=== PATIENT | male | born 1950 | race Caucasian/White ===

== ENCOUNTER 2017-11-19 09:23 | Outpatient (CLI) | payer MEDICARE | END 2017-11-19 09:24 | disposition home or self-care (01) | LOC: LABBT 09:23 | PROVIDERS: ATTEND Orthopaedic Surgery | DX: Z01.818 Encounter for other preprocedural examination (principal); M17.12 Unilateral primary osteoarthritis, left knee ==

== ENCOUNTER 2017-11-27 08:50 | Outpatient (CLI) | payer MEDICARE ==
[2017-11-27 09:50] LABS: #Eosinphils 0.2 thou/uL (0.0-0.7); #Lymphocytes 1.4 thou/uL (1.20-3.40); #Monocytes 0.4 thou/uL (0.11-0.59); #Neutrophils 2.7 thou/uL (1.40-6.50); %Basophils 0.8 % (0.0-1.0); %Eosinophils 4.1 % (0.0-10.0); %Lymphocytes 29.4 % (21.0-51.0); %Monocytes 8.6 % (0.0-10.0); %Neutrophils 57.1 % (42.0-75.0); Hemoglobin 16.1 g/dL (14.0-18.0); Mean Corpuscular HGB CONC 33.9 g/dL (32.0-36.0); Mean Corpuscular Hemoglobin 32.6 pg (27.0-31.0); Mean Corpuscular Volume 96.2 fl (80.0-94.0); Mean Platelet Volume 7.3 fL (7.4-10.4); Platelet Count 157 thou/uL (130-400); RBC Distribution Width 12.9 % (11.5-14.5); Red Blood Cell (RBC) Count 4.92 mill/uL (4.70-6.10); White Blood Cell (WBC) Count 4.7 thou/uL (4.8-10.8)
[2017-11-27 09:54] LABS: Bilirubin Negative (Negative); Blood, Urine Negative (Negative); Clarity CLEAR (Clear); Glucose, Urine (Dipstick) Negative (Negative); Leukocyte Negative (Negative); Nitrite Negative (Negative); Protein, Urine (Dipstick) Negative (Neg-Trace); Specific Gravity, Urine 1.012 (1.002-1.036); Urobilinogen 0.2 mg/dL (0.2-1.0)
[2017-11-27 09:56] LABS: Bacteria/HPF None Seen HPF (None Seen); Hyaline Casts/LPF 0-3 HYALINE CAST LPF (0-3 Hyaline); Squamous Epithelial 0-3 HPF (0-3); WBC/HPF 0-3 HPF (0-3)
[2017-11-27 09:58] LABS: INR-International Normal Ratio 1.3; PTT 41.4 SEC (22.9-36.1); Prothrombin Time 16.7 SEC (12.0-14.7)
[2017-11-27 10:11] LABS: Anion Gap 14 mmol/L (10-20); BUN (Urea Nitrogen) 20 mg/dL (8.4-25.7); Calc. Creatinine Clearance 0 mL/min (70-130); Calcium 9.5 mg/dL (7.8-10.44); Carbon Dioxide 24 mmol/L (23-31); Chloride 105 mmol/L (98-107); Estimated GFR-MDRD Greater than 90; Glucose 130 mg/dL (80-115); Potassium 4.4 mmol/L (3.5-5.1); Sodium 139 mmol/L (136-145)
--- NOTE | 2018-01-22 17:45 | EKG ---
Test Reason : Blood Pressure : / mmHG Vent. Rate : 073 BPM Atrial Rate : 073 BPM P-R Int : 178 ms QRS Dur : 080 ms QT Int : 372 ms P-R-T Axes : 068 028 046 degrees QTc Int : 409 ms Normal sinus rhythm Normal ECG No previous ECGs available Confirmed by KYLEE DIGGS M.D. ([id number] on 01/22/2018 5:45:31 PM Referred By: IERO Confirmed By:KYLEE DIGGS M.D.
== END 2017-11-27 08:51 | disposition home or self-care (01) ==
LOC: LABBT 08:50
PROVIDERS: ATTEND Orthopaedic Surgery
DX: Z01.818 Encounter for other preprocedural examination (principal); M17.12 Unilateral primary osteoarthritis, left knee
CPT/HCPCS: 80048; 81001; 85025; 85610; 85730; 86850; 86900; 86901; 87081; 93005; 93010

== ENCOUNTER 2017-12-02 05:25 | Day surgery (SDC) | payer MEDICARE ==
[2017-12-02] MEDS ORDERED: Fentanyl 100 MCG/2 ML VIAL ONE ×2 (06:14→06:28)
[2017-12-02] MEDS ORDERED: CEFAZOLIN/Water 2 GM/20 ML SYRINGE ONE (06:20)
[2017-12-02] MEDS ORDERED: Sodium Chloride 0.9% 100 ML ONE (06:20)
[2017-12-02] MEDS ORDERED: Midazolam HCl 2 mg/2 ml Vial ONE (06:28)
[2017-12-02] MEDS ORDERED: Lidocaine 1% (PF) 30 ML VIAL ONE ×2 (06:28→07:24)
[2017-12-02] MEDS ORDERED: Vancomycin HCl 1.5 GM in Sodium Chloride 0.9% 250 ML 300 ML IVPB SCH ×2 (06:30→18:00)
[2017-12-02] MEDS ORDERED: Bupivacaine PF 0.5% 30 ML VIAL ONE (06:44)
[2017-12-02] MEDS ORDERED: Zolpidem Tartrate 5 MG TAB PO PRN ×2 (07:16→07:21)
[2017-12-02] MEDS ORDERED: traMADol HCl 50 MG TAB PO PRN ×3 (07:16→07:21)
[2017-12-02] MEDS ORDERED: Ondansetron HCl/PF 4 MG/2 ML Vial IVP PRN ×2 (07:16→07:21)
[2017-12-02] MEDS ORDERED: HYDROcodone/Acetaminophen 10/325 mg Tablet PO PRN ×4 (07:16→07:21)
[2017-12-02] MEDS ORDERED: Bupivacaine 0.5% 50 ML in Sodium Chloride 0.9% 50 ML NERVE BLCK SCH (07:16)
[2017-12-02] MEDS ORDERED: Promethazine HCl 25 MG/ML VIAL IM PRN ×2 (07:16→07:21)
[2017-12-02] MEDS ORDERED: Fentanyl 100 MCG/2 ML VIAL IV PRN (07:17)
[2017-12-02] MEDS ORDERED: Acetaminophen 325 MG TAB PO PRN (07:21)
[2017-12-02] MEDS ORDERED: diphenhydrAMINE 25 MG CAP PO PRN (07:21)
[2017-12-02] MEDS ORDERED: Fentanyl 100 MCG/2 ML VIAL SLOW IVP PRN (07:21)
[2017-12-02] MEDS ORDERED: methylPREDNISolone Acetate 40 mg/ml Vial ONE (07:24)
[2017-12-02] MEDS ORDERED: Tranexamic Acid 1,000 MG in Sodium Chloride 0.9% 100 ML IVPB SCH (07:30)
[2017-12-02 11:34] VITALS: BMI 38.6
--- NOTE | 2017-12-02 11:39 | OP ---
DATE OF PROCEDURE: 12/02/2017. PREOPERATIVE DIAGNOSIS: Bilateral knee osteoarthrosis with a left being worse than the right. POSTOPERATIVE DIAGNOSIS: Bilateral knee osteoarthrosis with a left being worse than the right. PROCEDURES PERFORMED: 1. Left total knee replacement using Noel pinless navigation. 2. Right knee corticosteroid injection. SURGEON: Nicolas Layne M.D. AGRICULTURAL EQUIPMENT MECHANIC: Benny Cash PA-C. BLOOD LOSS: Minimal. ANESTHETIC: The patient did have general anesthetic. Patient also had preoperative blocks. IMPLANTS: To the left knee is a [place] Triathlon total knee system, the femur was a size 6 cruciate retaining. We used a size 6 universal tibia, we used a 6 x 9 mm X3 CS poly for the tibia and we use d an asymmetric 35 x 10 X3 patella. DISPOSITION: He did go to the recovery room in stable condition. INDICATIONS: A 67-year-old male who presents with bilateral knee arthritis and at this time, he wish ed to have the left knee replaced and the right knee injected. After all appropriate consent forms w ere explained and signed, he was taken to the operating room and at this time was given general anest hetic. Once the level of anesthesia was appropriate, the right knee was cleaned off with alcohol and a mixture of 1% plain lidocaine and 80 mg of Depo-Medrol was injected into the right knee without an y complication. A Band-Aid was applied. PROCEDURE IN DETAIL: After all appropriate consent forms were explained and signed, the patient was taken back to the Operating Room and at this time was given general anesthetic. Once the level of an esthesia was appropriate, a well-padded tourniquet was placed on the left leg and the leg was then pr epped and draped in standard surgical fashion. The limb was exsanguinated and tourniquet taken up to 300 mmHg. Midline incision was made with a 10 blade down through the skin and subcutaneous tissue. Bovie electrocautery was used to coagulate any brisk venous bleeding. A new blade was used to make a medial parapatellar arthrotomy. Small subperiosteal release was performed medially and excess fat pad was removed. The knee was flexed up to gain access to the femur. The femur was navigated and di stal femoral resection was made. Epicondylar access was used to align our sizing jig and this was pi nned in place. We sized our femur to be a size 6 cruciate retaining 4:1 cutting block was applied an d pinned. Anterior and posterior chamfer cuts were then made. We navigated out our proximal tibia a nd made our proximal tibial resection. Spreaders were used to remove any posterior osteophytes off t he back of the femur as well as remaining meniscal tissue. A long alignment alexandra was then used to ach ieve correct rotation of our tibial baseplate and a size 6 was chosen. This was pinned in place. We t rialed the polyethylene and a 6 x 9 mm X3 CS polyethylene gave us full extension and good stability t hroughout range of motion. Two towel clips and a saw were used to cut our patella. Three lug nuts w ere drilled and 35 x 10 X3 patella was trialed which sat nicely in the trochlear groove. We then dri lled our femur and punched our tibia. All components were removed. The knee was thoroughly irrigate d and dried. Cement was mixed into the cement gun on the back table. Components were then placed. The knee was held out in full extension until the cement had dried. All excess bone cement was remov ed. Multiple #2 Vicryl stitches as well as a Quill was used to close our extensor mechanism. 0 Quil l followed by a running Monoderm was then used to close the skin. Surgicel glue was then used on the skin. Once this had dried, soft tissue dressing was applied to the limb, tourniquet was let down, a nd the toes pinked up nicely. The patient was then awakened and taken to the Recovery Room in stable condition. All counts were correct at the end of the case. The patient did receive preoperative IV antibiotics. The patient was injected with Exparel for postoperative pain relief.
[2017-12-02] MEDS: Sodium Chloride 0.9% 1,000 ML IV SCH ×4 (11:53→20:50)
[2017-12-02] MEDS: Allopurinol 300 MG TAB PO SCH (11:54)
[2017-12-02] MEDS: Propranolol HCl LA 80 MG CAP PO SCH (11:54)
[2017-12-02] MEDS: Multivitamin W/ Minerals 1 TAB PO SCH (12:02)
[2017-12-02] MEDS: Ferrous Gluconate 324 MG TAB PO SCH ×2 (12:02→20:46)
[2017-12-02] MEDS: Senokot S 8.6-50 MG TAB PO SCH ×2 (12:03→20:45)
[2017-12-02] MEDS: Metamucil PACK PO SCH (12:08)
[2017-12-02] MEDS: Aspirin 81 mg Enteric Coated Tablet PO SCH ×2 (12:11→20:46)
[2017-12-02] MEDS: Hydrochlorothiazide 25 MG TAB PO SCH (12:11)
[2017-12-02] MEDS: Loratadine 10 MG TAB PO SCH (12:12)
[2017-12-02] MEDS ORDERED: PHENYLEPHRINE-NS 100 MCG/ML 10 ML SYRINGE ONE (12:22)
[2017-12-02] MEDS ORDERED: Ondansetron HCl/PF 4 MG/2 ML Vial ONE (12:22)
[2017-12-02] MEDS ORDERED: Ketorolac Tromethamine 30 MG/ML VIAL ONE (12:22)
[2017-12-02] MEDS ORDERED: PROPOFOL 200 MG/20 ML VIAL ONE (12:22)
[2017-12-02] MEDS ORDERED: Dexamethasone 20 MG/5 ML VIAL ONE (12:22)
[2017-12-02] MEDS ORDERED: Ropivacaine 0.5% HCl/PF (150 MG/30 ML VIAL) ONE (12:31)
[2017-12-02] MEDS ORDERED: Ropivacaine 0.2% HCl/PF (40 MG/20 ML VIAL) ONE (12:31)
--- NOTE | 2017-12-02 14:55 | PDOC.PN ---
- Subjective Encounter Start Date: 12/02/17 Encounter Start Time: 09:30 Subjective: pt up in bed no complains - Objective Vital Signs & Weight: Vital Signs (12 hours) Temp Pulse Resp BP Pulse Ox 12/02/17 11:42 97.6 F 68 20 97 12/02/17 10:40 97.6 F 68 20 163/84 H 97 Weight Weight 254 lb Phys Exam - Physical Examination HEENT: PERRLA, moist MMs, sclera anicteric, TM's clear, oral pharynx no lesions , 2+ tonsils Neck: no nodes, no JVD, supple, full ROM Respiratory: no wheezing, no rales, no rhonchi, wheezing present, clear to auscultation bilateral Cardiovascular: RRR, no significant murmur, no rub, gallop, irregular Gastrointestinal: soft, non-tender, no distention, positive bowel sounds left knee in michael wrap Dx/Plan (1) DVT (deep venous thrombosis) Code(s): I82.409 - ACUTE EMBOLISM AND THOMBOS UNSP DEEP VN UNSP LOWER EXTREMITY Status: Acute (2) HTN (hypertension) Code(s): I10 - ESSENTIAL (PRIMARY) HYPERTENSION Status: Acute (3) HTN (hypertension) Code(s): I10 - ESSENTIAL (PRIMARY) HYPERTENSION Status: Acute - Plan * . plan: pt has a high risk of dvt. Pt has strong family hx of factor V Leiden. pt has had two bouts of dvt. spoke with surgeon and we decided that will start pt on xarelto 10mg which is dvt ppx and the following day 12/04 will put pt on full dose of xarelto. will also continue asa given his hx of tia in the past. Review of Systems - Review of Systems ENT: negative: Ear Pain, Ear Discharge, Nose Pain, Nose Discharge, Nose Congestion, Mouth Pain, Mouth Swelling, Throat Pain, Throat Swelling, Other Respiratory: negative: Cough, Dry, Shortness of Breath, Hemoptysis, SOB with Excertion, Pleuritic Pain, Sputum, Wheezing Cardiovascular: negative: chest pain, palpitations, orthopnea, paroxysmal nocturnal dyspnea, edema, light headedness, other Gastrointestinal: negative: Nausea, Vomiting, Abdominal Pain, Diarrhea, Constipation, Melena, Hematochezia, Other Genitourinary: negative: Dysuria, Frequency, Incontinence, Hematuria, Retention , Other - Medications/Allergies Allergies/Adverse Reactions: Allergies Allergy/AdvReac Type Severity Reaction Status Date / Time No Known Allergies Allergy Verified 11/27/17 09:11 Medications: Current Medications Acetaminophen (Tylenol) 650 mg PO Q4H PRN PRN Reason: PAULSON/ T > 101F; Mild Pain (1-3) Hydrocodone Bitart/Acetaminophen ([place] 10/325) 1 tab PO Q4H PRN PRN Reason: Moderate Pain (4-6) Hydrocodone Bitart/Acetaminophen ([place] 10/325) 2 tab PO Q4H PRN PRN Reason: Severe Pain (7-10) Allopurinol (Zyloprim) 300 mg PO QAM [facility] Last Admin: 12/02/17 11:54 Dose: Not Given Aspirin (Ecotrin) 81 mg PO BID [facility] Last Admin: 12/02/17 12:11 Dose: 81 mg Atorvastatin Calcium (Lipitor) 10 mg PO QPM [facility] Cefazolin Sodium (Ancef) 2 gm SLOW IVP Q8HR [facility] Stop: 12/02/17 22:01 Diphenhydramine HCl (Benadryl) 25 mg PO Q6H PRN PRN Reason: Itching Fentanyl (Sublimaze) 50 mcg IV Q1H PRN PRN Reason: BREAKTHRU PAIN Fentanyl (Sublimaze) 100 mcg SLOW IVP Q1H PRN PRN Reason: Severe Pain (7-10) Ferrous Gluconate (Fergon) 324 mg PO BID [facility] Last Admin: 12/02/17 12:02 Dose: Not Given Hydrochlorothiazide (Hydrochlorothiazide) 12.5 mg PO DAILY [facility] Last Admin: 12/02/17 12:11 Dose: 12.5 mg Bupivacaine HCl 50 ml/ Sodium (Chloride) 100 mls @ 8 mls/hr NERVE BLCK INF [facility] Sodium Chloride (Normal Saline 0.9%) 1,000 mls @ 100 mls/hr IV .Q10H [facility] Last Admin: 12/02/17 12:14 Dose: 1,000 mls Vancomycin HCl 1.5 gm/ Sodium (Chloride) 300 mls @ 200 mls/hr IVPB 1800 [facility] Stop: 12/02/17 19:29 Iron/Minerals/Multivitamins (Theragran M) 1 tab PO DAILY [facility] Last Admin: 12/02/17 12:02 Dose: Not Given Ketorolac Tromethamine (Toradol) 30 mg IVP Q8HR [facility] Stop: 12/04/17 14:01 Loratadine (Claritin) 10 mg PO QAM [facility] Last Admin: 12/02/17 12:12 Dose: 10 mg Ondansetron HCl (Zofran) 4 mg IVP Q6H PRN PRN Reason: Nausea/Vomiting Promethazine HCl (Phenergan) 12.5 mg IM Q4H PRN PRN Reason: Nausea/Vomiting Propranolol HCl (Inderal La) 160 mg PO DAILY [facility] Last Admin: 12/02/17 11:54 Dose: Not Given Psyllium Hydrophilic Mucilloid (Metamucil) [facility] Admin: 12/02/17 12:08 Dose: Not Given Senna/Docusate Sodium (Senokot S) 2 tab PO BID [facility] Last Admin: 12/02/17 12:03 Dose: Not Given Sodium Chloride (Flush - Normal Saline) 10 ml IVF PRN PRN PRN Reason: Saline Flush Tramadol HCl (Ultram) 100 mg PO Q6H PRN PRN Reason: Mild Pain (1-3) Zolpidem Tartrate (Ambien) 5 mg PO HSPRN PRN PRN Reason: Insomnia
[2017-12-02] MEDS: Ketorolac Tromethamine 30 MG/ML VIAL IVP SCH ×2 (14:56→21:04)
[2017-12-02] MEDS: CEFAZOLIN/Water 2 GM/20 ML SYRINGE SLOW IVP SCH ×2 (14:56→21:05)
[2017-12-02] MEDS ORDERED: Aspirin 81 mg Enteric Coated Tablet PO SCH (21:00)
[2017-12-02] MEDS ORDERED: Atorvastatin Calcium 10 MG TAB PO SCH (21:00)
[2017-12-03] MEDS: Ketorolac Tromethamine 30 MG/ML VIAL IVP SCH ×2 (05:02→14:00)
[2017-12-03 05:30] LABS: Hemoglobin 14.4 g/dL (14.0-18.0); Mean Corpuscular HGB CONC 34.2 g/dL (32.0-36.0); Mean Corpuscular Volume 96.3 fl (80.0-94.0); Mean Platelet Volume 7.3 fL (7.4-10.4); Platelet Count 150 thou/uL (130-400); RBC Distribution Width 12.8 % (11.5-14.5); Red Blood Cell (RBC) Count 4.37 mill/uL (4.70-6.10); White Blood Cell (WBC) Count 14.4 thou/uL (4.8-10.8)
[2017-12-03] MEDS: Loratadine 10 MG TAB PO SCH (08:10)
[2017-12-03] MEDS: Aspirin 81 mg Enteric Coated Tablet PO SCH (08:10)
[2017-12-03] MEDS: Metamucil PACK PO SCH (08:11)
[2017-12-03] MEDS: Multivitamin W/ Minerals 1 TAB PO SCH (08:11)
[2017-12-03] MEDS: Senokot S 8.6-50 MG TAB PO SCH (08:11)
[2017-12-03] MEDS: Ferrous Gluconate 324 MG TAB PO SCH (08:11)
[2017-12-03] MEDS: Allopurinol 300 MG TAB PO SCH (08:11)
[2017-12-03] MEDS: Hydrochlorothiazide 25 MG TAB PO SCH (08:12)
[2017-12-03] MEDS: Propranolol HCl LA 80 MG CAP PO SCH (08:55)
[2017-12-03] MEDS ORDERED: Ropivacaine 0.2% 550 ML 550 ML NERVE BLCK SCH (10:46)
[2017-12-03] MEDS: Sodium Chloride 0.9% 1,000 ML IV SCH (11:12)
[2017-12-03 12:34] VITALS: BP 163/77; TEMP 98.4
[2017-12-03] MEDS ORDERED: Rivaroxaban 10 MG TAB PO SCH (17:00)
--- NOTE | 2017-12-04 13:13 | DIS ---
DATE OF ADMISSION: 12/02/2017 DATE OF DISCHARGE: 12/03/2017 DISCHARGE DISPOSITION: To home. ADMISSION DIAGNOSIS: End-stage tricompartmental bicompartmental osteoarthritis of left knee. DISCHARGE DIAGNOSIS: End-stage tricompartmental bicompartmental osteoarthritis of left knee. OPERATIVE PROCEDURE: Left total knee arthroplasty. CONSULTANTS: [facility]. BRIEF CLINICAL HISTORY: The patient was admitted to [facility] and underwent the above elective procedure on the date of admission without intra, serenity, or postoperative complicat ion. The hospital course was unremarkable. At the time of discharge, the patient is afebrile, ambul atory without assistance utilizing a rolling walker in a full weightbearing fashion, tolerating a reg ular diet, and voiding without difficulty. The patient's incision is clean and closed without any er ythema. DISCHARGE MEDICATIONS: Please see medication reconciliation form. We will be happy to see the patient on an as needed basis between now and her next scheduled appointm ent. CONDITION ON DISCHARGE: Stable. PROGNOSIS: Good.
== END 2017-12-03 15:10 | disposition home or self-care (01) ==
LOC: SDC 05:25 → SJJU 07:21 → SDC 12-03 15:10
PROVIDERS: ATTEND Orthopaedic Surgery
PROC: 0SRD0J9 Replacement of Left Knee Joint with Synthetic Substitute, Cemented, Open Approach (ICD-10-PCS; principal; 2017-12-02)
PROC: 3E0U33Z Introduction of Anti-inflammatory into Joints, Percutaneous Approach (ICD-10-PCS; 2017-12-02)
DX: M17.0 Bilateral primary osteoarthritis of knee (principal); I10 Essential (primary) hypertension; Z86.718 Personal history of other venous thrombosis and embolism; Z79.82 Long term (current) use of aspirin; Z79.899 Other long term (current) drug therapy
CPT/HCPCS: 20610; 27447; 85027; 97110; 97116 ×2; 97139 ×3; 97150; 97530 ×2; A4306; C1713; C1776; G8978; G8979; 36415; J1030; J1100; J1885; J2001; J2250; J2405; J2704; J2795; J3010; J3370; J3490; J7050; S0020

== ENCOUNTER 2019-04-08 08:57 | Outpatient (CLI) | payer MEDICARE ==
[2019-04-08 10:22] LABS: #Eosinphils 0.3 thou/uL (0.0-0.7); #Monocytes 0.5 thou/uL (0.11-0.59); #Neutrophils 2.6 thou/uL (1.40-6.50); %Basophils 0.7 % (0.0-1.0); %Eosinophils 6.2 % (0.0-10.0); %Lymphocytes 36.3 % (21.0-51.0); %Monocytes 9.1 % (0.0-10.0); %Neutrophils 47.7 % (42.0-75.0); Hemoglobin 16.6 g/dL (14.0-18.0); Mean Corpuscular Hemoglobin 32.5 pg (27.0-31.0); Mean Corpuscular Volume 98.6 fL (78.0-98.0); Mean Platelet Volume 7.7 fL (7.4-10.4); Platelet Count 144 thou/uL (130-400); RBC Distribution Width 12.7 % (11.5-14.5); Red Blood Cell (RBC) Count 5.12 mill/uL (4.70-6.10); White Blood Cell (WBC) Count 5.4 thou/uL (4.8-10.8)
[2019-04-08 10:27] LABS: Bilirubin Negative (Negative); Blood, Urine Negative (Negative); Clarity Clear (Clear); Glucose, Urine (Dipstick) Normal (Negative); Leukocyte Negative Leu/uL (Negative); Nitrite Negative (Negative); Protein, Urine (Dipstick) Negative (Neg-Trace); RBC/HPF 0-3 HPF (0-3); Squamous Epithelial 0-3 HPF (0-3); Urobilinogen Normal mg/dL (Less than 2); WBC/HPF 0-3 HPF (0-3)
[2019-04-08 10:29] LABS: Bacteria/HPF 1+ HPF (None Seen)
[2019-04-08 10:30] LABS: INR-International Normal Ratio 1.4; Prothrombin Time 17.5 SEC (12.0-14.7)
[2019-04-08 10:44] LABS: Anion Gap 13 mmol/L (10-20); BUN (Urea Nitrogen) 18 mg/dL (8.4-25.7); Calc. Creatinine Clearance 0 mL/min (70-130); Calcium 9.6 mg/dL (7.8-10.44); Carbon Dioxide 29 mmol/L (23-31); Chloride 101 mmol/L (98-107); Estimated GFR-MDRD 72; Glucose 119 mg/dL (80-115); Sodium 139 mmol/L (136-145)
== END 2019-04-08 08:58 | disposition home or self-care (01) ==
LOC: LABBT 08:57
PROVIDERS: ATTEND Orthopaedic Surgery
DX: Z01.818 Encounter for other preprocedural examination (principal); M17.11 Unilateral primary osteoarthritis, right knee
CPT/HCPCS: 80048; 81001; 85025; 85610; 87081; 93005; 93010

== ENCOUNTER 2019-04-15 16:20 | Inpatient (IN) | payer MEDICARE ==
[2019-04-15 18:25] LABS: #Basophils 0.1 thou/uL (0.0-0.2); #Eosinphils 0.1 thou/uL (0.0-0.7); #Lymphocytes 1.7 thou/uL (1.20-3.40); #Monocytes 1.5 thou/uL (0.11-0.59); #Neutrophils 7.7 thou/uL (1.40-6.50); %Basophils 0.6 % (0.0-1.0); %Eosinophils 0.5 % (0.0-10.0); %Lymphocytes 15.8 % (21.0-51.0); %Monocytes 13.3 % (0.0-10.0); %Neutrophils 69.8 % (42.0-75.0); Hemoglobin 13.5 g/dL (14.0-18.0); Mean Corpuscular HGB CONC 33.8 g/dL (32.0-36.0); Mean Corpuscular Hemoglobin 32.9 pg (27.0-31.0); Mean Corpuscular Volume 97.3 fL (78.0-98.0); Mean Platelet Volume 7.3 fL (7.4-10.4); Platelet Count 148 thou/uL (130-400); RBC Distribution Width 12.5 % (11.5-14.5); Red Blood Cell (RBC) Count 4.12 mill/uL (4.70-6.10)
[2019-04-15] MEDS: Acetaminophen 500 MG TAB PO PRN (18:26)
[2019-04-15 18:32] LABS: INR-International Normal Ratio 1.3; Prothrombin Time 16.2 SEC (12.0-14.7)
[2019-04-15 18:33] LABS: PTT 34.7 SEC (22.9-36.1)
[2019-04-15 18:52] LABS: ALT (SGPT) 42 U/L (8-55); AST (SGOT) 89 U/L (5-34); Albumin 3.8 g/dL (3.4-4.8); Alkaline Phosphatase 58 U/L (40-110); Anion Gap 12 mmol/L (10-20); BUN (Urea Nitrogen) 13 mg/dL (8.4-25.7); Bilirubin, Total 2.5 mg/dL (0.2-1.2); Calc. Creatinine Clearance 0 mL/min (70-130); Calcium 8.9 mg/dL (7.8-10.44); Carbon Dioxide 28 mmol/L (23-31); Chloride 100 mmol/L (98-107); Estimated GFR-MDRD 68; Globulin 2.9 g/dL (2.4-3.5); Glucose 122 mg/dL (80-115); Potassium 4.3 mmol/L (3.5-5.1); Protein, Total 6.7 g/dL (5.8-8.1); Sodium 136 mmol/L (136-145)
[2019-04-15 18:52] LABS: Lactic Acid 2.9 mmol/L (0.5-2.2)
[2019-04-15] MEDS ORDERED: traMADol HCl 50 MG TAB PO PRN (18:53)
--- NOTE | 2019-04-15 19:32 | RAD ---
TWO VIEW CHEST: 04/15/19 HISTORY: Fever. The lungs appear well aerated and clear. No infiltrate identified. No evidence of vascular congestion or edema. Heart size upper normal. IMPRESSION: No acute process identified. POS: AGW
[2019-04-15 19:47] VITALS: BMI 42.4
--- NOTE | 2019-04-15 20:54 | CON ---
DATE OF CONSULTATION: PRIMARY CARE PROVIDER: Dr. Olaf Vargas. PRIMARY ORTHOPEDIC SURGEON: Nicolas Layne MD. REASON FOR CONSULTATION: Fever and myalgias, status post right total knee arthroplasty. HISTORY OF PRESENT ILLNESS: This is a 68-year-old male who presents to [facility] after a recent right total knee arthroplasty on 04/13/2019, with essentially stable postoperative course, discharging home on 04/14/2019. The patient apparently had uncomplicated postoperative course according to the Orthopedic Team. The patient states he returned home and felt well, ambulating with a rolling walker without assistance. The patient states approximately 10 a.m. on 04/15/2019, he became suddenly weak, felt flushed and warm with weakness of his legs. The patient felt like he was going to pass out and sat down. The patient was apparently evaluated by his orthopedic surgeon and recommended for admission due to symptoms and concern for a more occult process. The patient denied any unilateral weakness, visual disturbance, difficulty with speech, but states he had some confusion. The patient denied any change to bowel habits, decreased oral intake, nausea or vomiting. The patient denied any chest pain, increased shortness of breath, jaw discomfort, or visual disturbance. The patient states he had some pain in his right knee, but had been taking pain medication at home with relief of his symptoms. The patient denied any fall, head injury, or exposure history. Initial evaluation up on direct admission to the floor, the patient was noted with a fever up to 103 degrees Fahrenheit orally. The patient received IV Ancef at the direction of the Orthopedic Surgery Team and consulted Hospitalist Service for further evaluation. PAST MEDICAL HISTORY: 1. 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 2. Renal lithiasis, treated with allopurinol. 3. Hyperlipidemia. 4. Hypertension. 5. Benign prostatic hyperplasia. 6. Benign essential tremor. 7. Reflex sympathetic dystrophy, status post left total knee arthroplasty on gabapentin. PAST SURGICAL HISTORY: 1. Status post appendectomy. 2. Status post left total knee arthroplasty. 3. Status post right total knee arthroplasty, 04/13/2019. CURRENT MEDICATIONS: 1. Allopurinol 300 mg p.o. daily. 2. Enteric-coated aspirin 81 mg p.o. daily. 3. Lipitor 10 mg p.o. at bedtime. 4. Zyrtec 10 mg p.o. daily. 5. Gabapentin 600 mg p.o. q.a.m. and 1200 mg at bedtime. 6. Hydrochlorothiazide 12.5 mg p.o. daily. 7. Propranolol 160 mg p.o. q.a.m.. 8. Xarelto 20 mg p.o. at bedtime. 9. Flomax 0.8 mg p.o. at bedtime. 10. Tramadol 50 mg p.o. q.6 hours p.r.n. pain. ALLERGIES: TO HYDROCODONE. FAMILY HISTORY: Father with right lower extremity amputation of unclear reasons. SOCIAL HISTORY: The patient is , accompanied by his daughter and in the hospital. Resides at home. No alcohol, tobacco, or illicit drug use. REVIEW OF SYSTEMS: CONSTITUTIONAL: Negative for weight loss or gain, ability to conduct usual activities. SKIN: Negative for rash, itching. EYES: Negative for double vision, pain. ENT/MOUTH: Negative for nose bleeding, neck stiffness, pain, tenderness. CARDIOVASCULAR: Negative for palpitations, dyspnea on exertion, orthopnea. RESPIRATORY: Negative for shortness of breath, wheezing, cough, hemoptysis, fever or night sweats. GASTROINTESTINAL: Negative for poor appetite, abdominal pain, heartburn, nausea, vomiting, constipation, or diarrhea. GENITOURINARY: Negative for urgency, frequency, dysuria, nocturia. MUSCULOSKELETAL: Negative for pain, swelling. NEUROLOGIC/PSYCHIATRIC: Negative for anxiety, depression. ALLERGY/IMMUNOLOGIC: Negative for skin rash, bleeding tendency. Otherwise negative except as stated per HPI. PHYSICAL EXAMINATION: VITAL SIGNS: Currently, blood pressure 174/77, pulse 74, respiratory rate 18, temperature 103 degrees Fahrenheit orally, O2 saturation 96% on room air. GENERAL APPEARANCE: This is a 68-year-old male, alert and oriented x3, pleasant, smiling, in no acute distress. HEENT: Pupils are equal, round, reactive to light and accommodation. Extraocular muscles are intact. No scleral icterus. No conjunctival injection. Nares are patent. OP is clear. Oral mucosa dry. NECK: Supple. No cervical adenopathy. No thyromegaly. No carotid bruits. No JVD appreciated. Cervical spine with full active and passive range of motion. No meningeal signs noted. CHEST: Lungs are clear to auscultation bilaterally. CARDIOVASCULAR: S1, S2 without noted murmur, rub, or gallop. ABDOMEN: Obese, soft, nontender, and nondistended. Landmarks are difficult to palpate due to the patient's body habitus. No rebound or guarding noted. Bowel sounds are positive in all 4 quadrants. EXTREMITIES: Right lower extremity with Kamron wrap in place with surgical dressing noted and knee brace in place. Pulses are palpable distally at the dorsalis pedis and posterior tibial arteries bilaterally. Capillary refill less than 2 seconds. NEUROLOGIC: Cranial nerves 2 through 12 are grossly intact. No focal or lateralizing signs appreciated. PERTINENT LABORATORY AND X-RAY FINDINGS: CBC showed a white blood cell count of 11, hemoglobin 13.5, hematocrit 40, platelet count 148 with 70% neutrophils. PT 16.2, INR 1.3, PTT 34.7. Complete metabolic profile and lactic acid level pending. ASSESSMENT AND PLAN: 1. Febrile episode with generalized weakness. The patient will be admitted under the Orthopedic Surgery Service. Exact etiology unclear. Postoperative day #2. 2. Status post right total knee arthroplasty. We will continue infectious workup to include chest imaging, blood cultures x2, and urine culture. Empiric Ancef initiated 2 g q.8 hours. Continue to monitor clinical response. 3. Status post right total knee arthroplasty. Postop day #2. Continue supportive management. Pain control as clinically indicated. No current evidence to suggest infected septic arthritis. 4. Hypertension. Resume home antihypertensive regimen and monitor clinical response. 5. Chronic anticoagulation. Resume Xarelto 20 mg p.o. daily. 6. Prophylaxis. SCDs while in bed. Pepcid 20 mg p.o. b.i.d. 7. Code status is full. Surrogate medical decision maker is the patient's spouse. Thank you for the consult. We will continue to follow with Primary Service. Job ID: [id number]
[2019-04-15] MEDS ORDERED: Rivaroxaban 10 MG TAB PO SCH (21:00)
[2019-04-15] MEDS: Acetaminophen 500 MG TAB PO SCH (21:00)
[2019-04-15] MEDS ORDERED: Aspirin 81 mg Enteric Coated Tablet PO SCH (21:00)
[2019-04-15] MEDS: Tamsulosin HCl 0.4 MG CAP PO SCH (21:01)
[2019-04-15] MEDS: Atorvastatin Calcium 10 MG TAB PO SCH (21:01)
[2019-04-15] MEDS: Gabapentin 400 MG CAP PO SCH (21:01)
[2019-04-15] MEDS: diphenhydrAMINE 50 MG CAP PO SCH (21:02)
[2019-04-15] MEDS: traMADol HCl 50 MG TAB PO PRN (21:10)
[2019-04-16] MEDS: CEFAZOLIN 2 GM in Premix Bag 1 BAG IVPB SCH ×3 (04:30→20:40)
[2019-04-16] MEDS: Acetaminophen 500 MG TAB PO PRN ×3 (04:35→17:30)
[2019-04-16 06:19] LABS: Eosinophils 1 % (0-10); Hemoglobin 12.1 g/dL (14.0-18.0); Lymphocytes 24 % (21-51); MDiff Complete? YES; Mean Corpuscular HGB CONC 33.1 g/dL (32.0-36.0); Mean Corpuscular Hemoglobin 32.3 pg (27.0-31.0); Mean Corpuscular Volume 97.5 fL (78.0-98.0); Mean Platelet Volume 7.4 fL (7.4-10.4); Monocytes 5 % (0-10); Neutrophil 69 % (42-75); Platelet Count 122 thou/uL (130-400); Platelet Morphology Comment Appears Decreased; RBC Distribution Width 12.3 % (11.5-14.5); Reactive Lymphocytes 1 % (0-10); Red Blood Cell (RBC) Count 3.74 mill/uL (4.70-6.10); White Blood Cell (WBC) Count 7.9 thou/uL (4.8-10.8)
[2019-04-16 06:29] LABS: Anion Gap 10 mmol/L (10-20); BUN (Urea Nitrogen) 17 mg/dL (8.4-25.7); Calc. Creatinine Clearance 146 mL/min (70-130); Calcium 8.3 mg/dL (7.8-10.44); Carbon Dioxide 28 mmol/L (23-31); Chloride 102 mmol/L (98-107); Estimated GFR-MDRD 90; Glucose 108 mg/dL (80-115); Potassium 3.6 mmol/L (3.5-5.1); Sodium 136 mmol/L (136-145)
[2019-04-16] MEDS: Gabapentin 300 MG CAP PO SCH ×2 (08:46→11:10)
[2019-04-16] MEDS: Propranolol HCl LA 80 MG CAP PO SCH (08:46)
[2019-04-16] MEDS ORDERED: Loratadine 10 MG TAB PO SCH (09:00)
[2019-04-16] MEDS ORDERED: Aspirin 81 mg Enteric Coated Tablet PO SCH ×2 (10:15→21:00)
--- NOTE | 2019-04-16 10:39 | HP ---
CHIEF COMPLAINT: Inability to walk with fever. HISTORY OF PRESENT ILLNESS: Eliot is a 68-year-old male, who is well known to our service for recent right total knee arthroplasty. He was discharged from the hospital on 04/14/2019 with an uneventful hospital course following a right total knee arthroplasty. Apparently, the patient was at home, ambulating towards bathroom and feeling quite well and doing good, when he felt flushed and feverish and had a near collapse. His son was able to catch him and get him to a chair where he sat for some time, but still complained of feeling feverish and according to the patient's son who accompanies him, the patient was sometimes incoherent. He was taken to the clinic. Dr. Layne looked the patient, evaluated him and was concerned, therefore, recommended direct admission. We have elected to admit him to the Medicine floor and consult with Internal Medicine for evaluation. PAST MEDICAL HISTORY: Significant for hypertension, which is managed as an outpatient; hyperlipidemia; BPH; essential familial tremor. The patient had a reflex sympathetic dystrophy on his left total knee arthroplasty approximately a year ago and he has had a history of DVT in the right lower extremity. This is the reason for his Xarelto treatment. PAST SURGICAL HISTORY: Left total knee arthroplasty, appendectomy and most recently right total knee arthroplasty 2 days ago. SOCIAL HISTORY: He denies any ethanol, tobacco, or illicit drug abuse. He is . His and children accompany him at the bedside tonight. PHYSICAL EXAMINATION: GENERAL: This is a large male, appearing stated age, in no apparent distress or discomfort. He is alert and oriented to person, place, time, situation, responsive, appropriate with examiner and grossly nonfocal. VITAL SIGNS: Obtained upon admit, temperature 99.4, pulse 67, respiratory rate 18, O2 saturation is 93% on room air, and blood pressure is 136/83. HEENT: Pupils equally round and reactive to light. Oropharynx benign. CHEST: Clear to auscultation. HEART: Regular rate and rhythm. ABDOMEN: Soft, benign, nontender, non-peritoneal. EXTREMITIES: No clubbing, cyanosis, or edema. Range of motion of the shoulders and arms and strength is 5/5 in both upper and lower extremities. He has dorsiflexion, inversion, eversion bilaterally in lower extremities. Incision of his right knee is clean and closed, it is dry. There is no strike through on a newly dressed bandage from earlier that morning. I see no fasciculations or atrophy, but the patient does have some benign repetitive tremors in the right and left upper extremities. IMPRESSION: 1. Status post right total knee arthroplasty within the last 48 hours. 2. Acute onset right neuropraxia, bilateral lower extremity. 3. Hypertension. 4. Subjective fevers. PLAN: 1. The patient will be admitted to the medicine floor. We will consult with the hospitalist regarding condition and prognosis. I have already discussed the case with Dr. Aramis Boston and he will see the patient this evening. 2. Chest x-ray, comprehensive metabolic profile, CBC, PT, INR, and magnesium will be drawn. 3. Please see orders. Job ID: [id number]
--- NOTE | 2019-04-16 12:15 | PDOC.HOSPP ---
- Subjective Encounter Date: 04/16/19 Encounter Time: 10:00 Subjective: fever is better, no sob or cough or chest pain right knee pain is better at bedside - Objective Vital Signs & Weight: Vital Signs (12 hours) Temp Pulse Resp BP Pulse Ox 04/16/19 11:21 100.1 F H 67 20 143/73 H 97 04/16/19 08:00 95 04/16/19 07:40 99.3 F 68 12 118/69 95 04/16/19 03:05 99.4 F 70 16 119/78 94 L Weight Weight 279 lb Result Diagrams: 04/16/19 06:00 04/16/19 06:00 Hospitalist ROS - Medication Medications: Active Medications Generic Name Dose Route Start Last Admin Trade Name Freq PRN Reason Stop Dose Admin Acetaminophen 1,000 mg 04/15/19 18:22 04/16/19 11:10 Tylenol PO 1,000 mg Q6H PRN Administration Fever Acetaminophen 1,000 mg 04/15/19 21:00 04/15/19 21:00 Tylenol PO 1,000 mg HS ELISHA Administration Atorvastatin Calcium 10 mg 04/15/19 21:00 04/15/19 21:01 Lipitor PO 10 mg QPM ELISHA Administration Diphenhydramine HCl 50 mg 04/15/19 21:00 04/15/19 21:02 Benadryl PO 50 mg HS ELISHA Administration Gabapentin 600 mg 04/16/19 09:00 04/16/19 11:10 Neurontin PO 600 mg 0900,1200 ELISHA Administration Gabapentin 1,200 mg 04/15/19 21:00 04/15/19 21:01 Neurontin PO 1,200 mg HS ELISHA Administration Cefazolin Sodium/Dextrose 2 gm 50 mls @ 100 mls/hr 04/16/19 04:00 04/16/19 04 :30 / Device IVPB 50 mls 0400,1200,2000 ELISHA Administration Loratadine 10 mg 04/16/19 09:00 04/16/19 08:50 Claritin PO 10 mg QAM ELISHA Administration Propranolol HCl 160 mg 04/16/19 09:00 04/16/19 08:46 Inderal La PO 160 mg QAM ELISHA Administration Sodium Chloride 10 ml 04/15/19 21:00 04/16/19 08:51 Flush - Normal Saline IVF 10 ml Q12HR ELISHA Administration Tamsulosin HCl 0.8 mg 04/15/19 21:00 04/15/19 21:01 Flomax PO 0.8 mg HS ELISHA Administration Tramadol HCl 50 mg 04/15/19 17:51 04/15/19 21:10 Ultram PO 50 mg Q8H PRN Administration Pain - Exam General Appearance: NAD, awake alert Eye: PERRL, anicteric sclera ENT: no oropharyngeal lesions, dry oral mucosa Neck: supple, no JVD Heart: RRR, no murmur Respiratory: no wheezes, no rales Gastrointestinal: soft, non-tender, non-distended, normal bowel sounds Extremities - other findings: right knee in crepe bandage Neurological: cranial nerve grossly intact, no focal deficits Psychiatric: normal affect, A&O x 3 Hosp A/P (1) Postoperative fever Code(s): R50.82 - POSTPROCEDURAL FEVER Status: Acute (2) Near syncope Status: Resolved (3) H/O deep venous thrombosis Code(s): Z86.718 - PERSONAL HISTORY OF OTHER VENOUS THROMBOSIS AND EMBOLISM Status: Chronic (4) BPH (benign prostatic hyperplasia) Code(s): N40.0 - BENIGN PROSTATIC HYPERPLASIA WITHOUT LOWER URINRY TRACT SYMP Status: Chronic Qualifiers: Lower urinary tract symptom presence: symptoms absent Qualified Code(s): N40.0 - Benign prostatic hyperplasia without lower urinary tract symptoms (5) Dyslipidemia Code(s): E78.5 - HYPERLIPIDEMIA, UNSPECIFIED Status: Chronic (6) HTN (hypertension) Code(s): I10 - ESSENTIAL (PRIMARY) HYPERTENSION Status: Chronic Qualifiers: Hypertension type: essential hypertension Qualified Code(s): I10 - Essential (primary) hypertension - Plan prelim blood cs x2 are -ve, cxr shows no infiltrate or atelectasis on ancef is of xarelto, increase asp to bid for dvt prophylaxis post knee surgery i.spirometry PT to mobilize per ortho advice on gabapentin, flomax will f/u per he has had similar fever for nearly 2-3 weeks after previous knee replacement
[2019-04-16] MEDS: traMADol HCl 50 MG TAB PO PRN (17:37)
[2019-04-16] MEDS: diphenhydrAMINE 50 MG CAP PO SCH (20:39)
[2019-04-16] MEDS: Tamsulosin HCl 0.4 MG CAP PO SCH (20:39)
[2019-04-16] MEDS: Gabapentin 400 MG CAP PO SCH (20:39)
[2019-04-16] MEDS: Atorvastatin Calcium 10 MG TAB PO SCH (20:40)
[2019-04-16] MEDS: Acetaminophen 500 MG TAB PO SCH (20:40)
[2019-04-17] MEDS ORDERED: Sodium Chloride 0.9% 1,000 ML IV SCH (00:01)
[2019-04-17] MEDS: CEFAZOLIN 2 GM in Premix Bag 1 BAG IVPB SCH ×2 (03:35→12:19)
[2019-04-17] MEDS: Propranolol HCl LA 80 MG CAP PO SCH (10:23)
[2019-04-17 12:21] VITALS: BP 138/74; TEMP 99.7
--- NOTE | 2019-04-17 13:35 | PDOC.HOSPP ---
- Subjective Encounter Date: 04/17/19 Encounter Time: 11:00 Subjective: is working with PT no sob or cough right knee pain is better - Objective Vital Signs & Weight: Vital Signs (12 hours) Temp Pulse Resp BP Pulse Ox 04/17/19 12:19 99.7 F H 66 16 138/74 94 L 04/17/19 08:00 93 L 04/17/19 07:33 99.1 F 69 18 143/74 H 93 L 04/17/19 03:35 99 F 71 18 127/70 96 Weight Admit Weight 279 lb Weight 279 lb I&O: 04/16/19 04/17/19 04/18/19 06:59 06:59 06:59 Intake Total 525 Balance 525 Result Diagrams: 04/16/19 06:00 04/16/19 06:00 Hospitalist ROS - Medication Medications: Active Medications Generic Name Dose Route Start Last Admin Trade Name Freq PRN Reason Stop Dose Admin Acetaminophen 1,000 mg 04/15/19 18:22 04/16/19 17:30 Tylenol PO 1,000 mg Q6H PRN Administration Fever Acetaminophen 1,000 mg 04/15/19 21:00 04/16/19 20:40 Tylenol PO 1,000 mg HS ELISHA Administration Aspirin 81 mg 04/16/19 21:00 04/16/19 20:41 Ecotrin PO Not Given BID ELISHA Atorvastatin Calcium 10 mg 04/15/19 21:00 04/16/19 20:40 Lipitor PO 10 mg QPM ELISHA Administration Diphenhydramine HCl 50 mg 04/15/19 21:00 04/16/19 20:39 Benadryl PO 50 mg HS ELISHA Administration Gabapentin 600 mg 04/16/19 09:00 04/16/19 11:10 Neurontin PO 600 mg 0900,1200 ELISHA Administration Gabapentin 1,200 mg 04/15/19 21:00 04/16/19 20:39 Neurontin PO 1,200 mg HS ELISHA Administration Cefazolin Sodium/Dextrose 2 gm 50 mls @ 100 mls/hr 04/16/19 04:00 04/17/19 12 :19 / Device IVPB 50 mls 0400,1200,2000 ELISHA Administration Sodium Chloride 1,000 mls @ 75 mls/hr 04/17/19 00:01 04/17/19 00:20 Normal Saline 0.9% IV 1,000 mls .[id number] ELISHA Administration Loratadine 10 mg 04/16/19 09:00 04/16/19 08:50 Claritin PO 10 mg QAM ELISHA Administration Propranolol HCl 160 mg 04/16/19 09:00 04/17/19 10:23 Inderal La PO 160 mg QAM ELISHA Administration Sodium Chloride 10 ml 04/15/19 21:00 04/16/19 20:41 Flush - Normal Saline IVF 10 ml Q12HR ELISHA Administration Tamsulosin HCl 0.8 mg 04/15/19 21:00 04/16/19 20:39 Flomax PO 0.8 mg HS ELISHA Administration Tramadol HCl 50 mg 04/15/19 17:51 04/16/19 17:37 Ultram PO 50 mg Q8H PRN Administration Pain - Exam General Appearance: NAD, awake alert Eye: PERRL, anicteric sclera ENT: no oropharyngeal lesions, moist mucosa Neck: supple, no JVD Heart: RRR, no murmur Respiratory: no wheezes, no rales, no ronchi Gastrointestinal: soft, non-tender, non-distended, normal bowel sounds Extremities: no cyanosis, no clubbing Neurological: cranial nerve grossly intact, no focal deficits Psychiatric: normal affect, A&O x 3 Hosp A/P (1) Postoperative fever Code(s): R50.82 - POSTPROCEDURAL FEVER Status: Acute (2) Near syncope Status: Resolved (3) H/O deep venous thrombosis Code(s): Z86.718 - PERSONAL HISTORY OF OTHER VENOUS THROMBOSIS AND EMBOLISM Status: Chronic (4) BPH (benign prostatic hyperplasia) Code(s): N40.0 - BENIGN PROSTATIC HYPERPLASIA WITHOUT LOWER URINRY TRACT SYMP Status: Chronic Qualifiers: Lower urinary tract symptom presence: symptoms absent Qualified Code(s): N40.0 - Benign prostatic hyperplasia without lower urinary tract symptoms (5) Dyslipidemia Code(s): E78.5 - HYPERLIPIDEMIA, UNSPECIFIED Status: Chronic (6) HTN (hypertension) Code(s): I10 - ESSENTIAL (PRIMARY) HYPERTENSION Status: Chronic Qualifiers: Hypertension type: essential hypertension Qualified Code(s): I10 - Essential (primary) hypertension - Plan blood cs x2 are -ve, cxr shows no infiltrate or atelectasis on ancef is off xarelto, on asp to bid for dvt prophylaxis post knee surgery is npo for possible procedure per ortho i.spirometry PT to mobilize per ortho advice on gabapentin, flomax per he has had similar fever for nearly 2-3 weeks after previous knee replacement tmax of 99 so far
--- NOTE | 2019-04-21 10:18 | EKG ---
Test Reason : Blood Pressure : / mmHG Vent. Rate : 068 BPM Atrial Rate : 068 BPM P-R Int : 174 ms QRS Dur : 088 ms QT Int : 406 ms P-R-T Axes : 061 016 036 degrees QTc Int : 431 ms Normal sinus rhythm Normal ECG When compared with ECG of 08-APR-2019 09:58, No significant change was found Confirmed by AVERY TREVINO MD ([id number]) on 04/21/2019 10:17:25 AM Referred By: JABARI Confirmed By:AVERY TREVINO MD
== END 2019-04-17 15:55 | disposition home or self-care (01) | DRG 864 ==
LOC: 2SE 16:54 → OBSVTOIN 04-16 13:09 → SURG B 04-16 17:05
PROVIDERS: ADMIT Orthopaedic Surgery; ATTEND Orthopaedic Surgery
DX: R50.82 Postprocedural fever (principal); R55 Syncope and collapse; N40.0 Benign prostatic hyperplasia without lower urinary tract symptoms; E78.5 Hyperlipidemia, unspecified; I10 Essential (primary) hypertension; Z96.653 Presence of artificial knee joint, bilateral; Z86.718 Personal history of other venous thrombosis and embolism; Z79.82 Long term (current) use of aspirin; Z79.01 Long term (current) use of anticoagulants; Z88.5 Allergy status to narcotic agent; Z79.899 Other long term (current) drug therapy
CPT/HCPCS: 36415; 71046; 80048; 80053; 83605; 83735; 85007; 85025; 85027; 85610; 85730; 87040; 93005; 93010; A4306; C1713; C1776; J0131; J0690; J1100; J1885; J2001; J2250; J2405; J2704; J2795; J3010; J3370; J3490; J7050; Q0163; S0020